=== PATIENT | male | born 1945 ===

== ENCOUNTER 2022-07-16 17:54 | Emergency (ER) | payer OTHER ==
[~2022-07-16] VITALS: Ht 175.3 cm; Wt 77.3 kg
[2022-07-16 18:06] VITALS: BP 116/50
[2022-07-16] MEDS ORDERED: BEBTELOVIMAB (EUA) 175 MG/2 ML VIAL IVP ONE (18:30)
[2022-07-16] MEDS ORDERED: ACETAMINOPHEN 500 MG TABLET PO ONE (19:15)
[2022-07-16] MEDS ORDERED: ACETAMINOPHEN 325 MG TABLET PO ONE (19:15)
== END 2022-07-16 20:49 | disposition home or self-care (01) ==
LOC: EMS 17:59
DX: U07.1 COVID-19 (principal); I10 Essential (primary) hypertension; I48.91 Unspecified atrial fibrillation
CPT/HCPCS: 99283; 71045; Q0222; M0222